=== PATIENT | female | born 1960 | race Caucasian/White ===

== ENCOUNTER 2019-02-13 19:40 | Emergency (ER) | payer MEDICAID, OTHER ==
[~2019-02-13] VITALS: Ht 157.5 cm; Wt 63.5 kg
--- NOTE | 2019-02-13 19:40 | NUR ---
PT [facility]. TAKEN TO BED 2
[2019-02-13 19:41] VITALS: BP 106/41
--- NOTE | 2019-02-13 19:52 | NUR ---
PMH- NONVERBAL, COPD, OSTEOMYELITIS, ANXIETY, DYSPHAGIA, NON AMBULATORY
--- NOTE | 2019-02-13 19:59 | NUR ---
spoke to nikko amaro from [facility], stated pt kept pulling out g tube. gtube was 16 russian. er made aware of status.
--- NOTE | 2019-02-13 20:16 | NUR ---
[facility] [place] contact # [phone]
--- NOTE | 2019-02-13 20:27 | NUR ---
DR SOLANO AT BEDSIDE
--- NOTE | 2019-02-13 20:30 | NUR ---
DR. SOLANO PLACE GT. 18FR. NO SIGNS OF ACUTE DISTRESS NOTED.
--- NOTE | 2019-02-13 22:24 | NUR ---
SPOKE TO ANDI AT [facility] [phone] REGARDING PT TRANSFER BACK TO SNF. INFORMED OF 18 FR AJ.
--- NOTE | 2019-02-13 23:02 | NUR ---
sxned patients open stoma. large amts of thick yellow secretions.
--- NOTE | 2019-02-13 23:56 | NUR ---
[facility] AT BEDSIDE
--- NOTE | 2019-02-13 23:58 | NUR ---
PT TAKEN BY [facility] TO [facility]
--- NOTE | 2019-02-14 | NUR ---
Patient discharged with v/s stable. Written and verbal after care instructions given and explained. Patient verbalized understanding. Ambulance Transport with to half-way. All questions addressed prior to discharge. Advised to follow up with PMD.
[2019-02-14 00:05] VITALS: BP 106/41
== END 2019-02-14 | disposition home or self-care (01) ==
LOC: MED 19:40
DX: Z43.1 Encounter for attention to gastrostomy (principal); J44.9 Chronic obstructive pulmonary disease, unspecified; F41.9 Anxiety disorder, unspecified; Z93.1 Gastrostomy status
CPT/HCPCS: 43762; 74241; 99284; Q0092; Q9967

== ENCOUNTER 2019-02-16 01:38 | Emergency (ER) | payer OTHER ==
[~2019-02-16] VITALS: Ht 175.3 cm; Wt 67.6 kg
[2019-02-16 01:38] VITALS: BP 88/61
--- NOTE | 2019-02-16 01:38 | NUR ---
TO BED # 09, [place]UL[place] [facility] [place]
--- NOTE | 2019-02-16 02:27 | NUR ---
PATIENT PRESENTS TO ED WITH BROUGHT IN BY AMBULANCE FROM [facility] WITH C/O G TUBE REPLACEMENT . PATIENT ALERT AWAKE, NON AMBULATORY . PT STATES . DENIES N/V/D; SKIN IS PINK/WARM/DRY; AAOX3, UNABLE TO AMBULATE. LUNGS CLEAR BL; HR EVEN AND REGULAR; PT DENIES ANY FEVER, CP, SOB, OR COUGH AT THIS TIME; PATIENT STATES PAIN OF 0/10 AT THIS TIME; VSS; PATIENT POSITIONED FOR COMFORT; HOB ELEVATED; BEDRAILS UP X2; BED DOWN. ER MD MADE AWARE OF PT STATUS.
--- NOTE | 2019-02-16 03:00 | NUR ---
PT IS NOT COOPERATIVE, UNABLE TO WALK BUT TRIES TO GET OUT OF THE BED ALL THE TIME. TRIED TO PUNCH STAFF. CALLED SECURITY FOR PT'S AND STAFF SAFETY.
--- NOTE | 2019-02-16 03:34 | NUR ---
PT IS NOT COOPERATIVE, TRYING TO GET OUT OF THE BED ALL THE TIME, AND TRIES TO HIT STAFF. PULLS ALL THE CABLES AND WIRES. WILL CONTINUE TO MONITOR CLOSELY.
--- NOTE | 2019-02-16 05:05 | NUR ---
Patient discharged with v/s stable. Written and verbal after care instructions given and explained given to Care Transport staff Renée Kirby . Ambulance Transport CARE with to [facility]. All questions addressed prior to discharge. Advised to follow up with PMD.
[2019-02-16 05:08] VITALS: BP 108/60
--- NOTE | 2019-02-16 05:09 | NUR ---
Patient discharged with v/s stable. Written and verbal after care instructions given and explained. Patient verbalized understanding. Ambulance Transport with to long-term. All questions addressed prior to discharge. Advised to follow up with PMD. GT XRAY SHOWED GT INPLACE, NO INTERVENTION NEEDED. PT LEFT WITH [facility]
== END 2019-02-16 05:05 ==
LOC: MED 01:38
DX: Z43.1 Encounter for attention to gastrostomy (principal); J44.9 Chronic obstructive pulmonary disease, unspecified
CPT/HCPCS: 74241; 99283; 99284

== ENCOUNTER 2019-02-16 06:05 | Emergency (ER) | payer OTHER ==
[~2019-02-16] VITALS: Ht 175.3 cm; Wt 67.6 kg
--- NOTE | 2019-02-16 06:30 | NUR ---
PATIENT PRESENTS TO ED FOR GT REPLACEMENT, DR. RUVALCABA AT THE BEDSIDE REPALCED THE GT AND XRAY DONE. DENIES N/V/D; SKIN IS PINK/WARM/DRY; AAOX2, UNABLE TO WALK AND TRIES TO GET OFF THE BED; LUNGS CLEAR BL; HR EVEN AND REGULAR; PT DENIES ANY FEVER, CP, SOB, OR COUGH AT THIS TIME; PATIENT STATES PAIN OF 0/10 AT THIS TIME; VSS; PATIENT POSITIONED FOR COMFORT; HOB ELEVATED; BEDRAILS UP X2; BED DOWN. ER MD MADE AWARE OF PT STATUS.
--- NOTE | 2019-02-16 07:25 | NUR ---
REPORT RECEIVED FROM WILVER JOHN.
--- NOTE | 2019-02-16 08:35 | NUR ---
[facility] at bedside to [facility] patient and transfer back to [facility].
[2019-02-16 08:42] VITALS: BP 176/78
--- NOTE | 2019-02-16 08:42 | NUR ---
[facility] PICKED PT UP TO [facility]. PT'S VSS.
== END 2019-02-16 08:42 | disposition home or self-care (01) ==
LOC: MED 06:05
DX: T85.898A Other specified complication of other internal prosthetic devices, implants and grafts, initial encounter (principal); Y83.9 Surgical procedure, unspecified as the cause of abnormal reaction of the patient, or of later complication, without mention of misadventure at the time of the procedure; Y92.89 Other specified places as the place of occurrence of the external cause
CPT/HCPCS: 43762; 74241; 99284; Q0092